=== PATIENT | female | born 1970 | race Caucasian/White ===

== ENCOUNTER → 2021-02-07 12:54 | Outpatient (CLI) | payer OTHER, SELFPAY ==
--- NOTE | 2021-02-07 14:23 | NEURO ---
NCS and/or EMG Patient Report Ordering Doctor: Keren Ramirez DATE OF SERVICE: 02/07/21 Indication: Intermittent bilateral hand numbness and tingling for many years in the first three digits of both hands (right greater than left). Evaluate for median neuropathy. Findings: Nerve conduction studies were performed in the right and left upper extremities. The right median motor study recording the abductor pollicis brevis showed a reduced amplitude, prolonged distal latency and slowed conduction velocity. The right ulnar motor study recording the abductor digiti minimi showed a normal amplitude, normal distal latency and normal conduction velocity. No conduction block or focal slowing was present across the elbow. The right median sensory response recording digit two showed a reduced amplitude, prolonged latency and markedly slowed conduction velocity. The right ulnar sensory response recording digit five showed a normal amplitude, latency and conduction velocity. The right radial sensory response recording over the extensor snuff box showed a normal amplitude, latency and conduction velocity. The left median motor study recording the abductor pollicis brevis showed a slightly reduced amplitude, borderline distal latency and borderline conduction velocity. The left ulnar motor study recording the abductor digiti minimi showed a normal amplitude, normal distal latency and normal conduction velocity. No conduction block or focal slowing was present across the elbow. The left median sensory response recording digit two showed a normal amplitude, prolonged latency and slowed conduction velocity. The left ulnar sensory response recording digit five showed a normal amplitude, latency and conduction velocity. The left radial sensory response recording over the extensor snuff box showed a normal amplitude, latency and conduction velocity. Right median-ulnar lumbrical / interosseous motor latencies showed a prolonged median latency compared to the ulnar. Left median-ulnar lumbrical / interosseous motor latencies showed a prolonged median latency compared to the ulnar. Needle EMG of the right upper extremity and cervical paraspinal muscles was performed. No denervation was seen in any muscle. Motor units in the abductor pollicis brevis were large amplitude and long duration with normal recruitment. All other motor unit morphology, activation and recruitment patterns were normal. Needle EMG of the left abductor pollicis brevis was performed. No denervation was seen. Motor unit morphology, activation and recruitment patterns were normal. Impression: This is an abnormal study. There is electrophysiologic evidence of median neuropathy across both wrists (moderate on the right, very mild on the left). These findings are compatible with the clinical diagnosis of carpal tunnel syndrome. In addition, there is no electrophysiologic evidence of a superimposed cervical radiculopathy in the right upper extremity. Ottoniel Richardson D.O. Multi Select Codes Neurology Neurology Interp Codes: 10611-51 Musc tst done w/nerv tst greene (interp) (59), 38847-03 Musc test done w/n test comp (interp) and 79412-06 Nrv cndj test 9-10 studies (interp)
== END ==
PROVIDERS: PCP Physician Assistant; Referring Provider Physician Assistant; Visit Provider Physician Assistant
DX: G56.03 Carpal tunnel syndrome, bilateral upper limbs (principal)
CPT/HCPCS: 95885; 95886; 95913

== ENCOUNTER 2025-04-07 08:40 | Day surgery (SDC) | payer OTHER, SELFPAY ==
[2025-04-07] VITALS (8 sets, daily range): BP systolic 75–112; BP diastolic 45–80; PULSE 67–74; RESP 14–16; TEMP 36.1–37.1; O2SAT 92–97; BMI 22.4
--- NOTE | 2025-04-07 08:54 | PCM.PRE.AN2 ---
ASA Classification* ASA Classification ASA Classification: 2 Assessment & Plan Anesthesia* Anesthesia Assessment Anesthesia Assessment: Discussed sedation and/or anesthesia options, risks, benefits, and alternatives with patient/parents/legal guardian/POA. Questions invited. The patient/parents/legal guardian/POA seems to understand and agrees to proceed with anesthesia plan. Reviewed the physical assessment, medical history, allergy history and patient home medications list prior to surgery/procedure/anesthetic and documented any changes. Performed airway and anesthesia risk assessments. Anesthesia Type Anesthesia Type: MAC Anesthesia Focused Assessment* Airway Assessment Mouth opens: >3 cm Mallampati Score: II Labs Anesthesia Preop lab: CBC WBC, (4.4-11.0) 7.3 K/mm3 05/28/13, 06:06 RBC, (4.2-5.4) 3.59 M/mm3 L 05/28/13, 06:06 Hgb, (12.0-15.0) 11.4 g/dl L 05/28/13, 06:06 Hct, (37-47) 34.4 % L 05/28/13, 06:06 Plt Count, (150-450) 197 K/mm3 05/28/13, 06:06 CHEMISTRY Potassium, (3.5-5.1) 3.9 mmol/L 05/21/13, 11:17 Sodium, (136-145) 139 mmol/L 05/21/13, 11:17 BUN, (7-18) 14 mg/dL 05/21/13, 11:17 Creatinine, (0.6-1.0) 0.7 mg/dL 05/21/13, 11:17 Glucose, (70-110) 77 mg/dL 05/21/13, 11:17 COAG Pre-Assessment Diagnosis/Proposed Procedure Planned Operative Procedure(s): EGD WITH DILATION Anesthesia History Anesthesia History - supervising bailiff: Anesthesia History - supervising bailiff Hx Hospitalization No 04/06/25 13:58 Any Problems With Anesthesia Yes: NAUSEA 04/06/25 13:58 Cholinesterase deficiency No 04/06/25 13:58 You/Your Family Experience No 04/06/25 13:58 fever (hyperthermia) with Relationship Recent Exposure to Contagious No 02/04/14 08:20 Disease Does patient have nerve No 04/06/25 13:58 stimulator Patient instructed to have device shut off --Does patient have Pacemaker or ICD? When Was Last Pacemaker Check QUESTION #4 FULL TEXT: You/Your Family Experience fever (hyperthermia) with Anesthesia Last Oral Intake Last Oral intake: Last Oral Intake NPO since Meds taken in AM with sips of water? Meds patient instructed to take am of surgery PONV PONV - supervising bailiff: PONV - supervising bailiff Female Yes 04/06/25 13:58 HX of Motion Sickness Yes 04/06/25 13:58 HX of N/V After Surgery Yes 04/06/25 13:58 Non-Smoker Yes 04/06/25 13:58 Duration of Surgery greater No 04/06/25 13:58 than 60 minutes Number of Risk Factors 4 04/06/25 13:58 PONV Score Severe Risk 04/06/25 13:58 Height & Weight Height & Weight: Anesthesia: Height & Weight Height 5 ft 6 in 04/02/25 12:53 Respiratory Assessment Respiratory Assessment - supervising bailiff: Respiratory Tract Infection Hx - supervising bailiff Hx Respiratory Tract Infection No 04/06/25 13:58 STOP Sleep Apnea STOP Sleep Apnea - supervising bailiff: STOP Sleep Apnea - supervising bailiff Hx Hypertension Yes: CONTROLLED WITH MED 04/06/25 13:58 Hx Sleep Apnea No 04/06/25 13:58 CPAP No 05/27/13 12:13 BIPAP No 05/27/13 09:12 Do you snore loudly (louder Yes 04/06/25 13:58 than talking or can be heard Do you often feel tired/ No 04/06/25 13:58 fatigued/ sleepy during daytime? Has anyone observed you stop No 04/06/25 13:58 breathing during sleep? STOP Results Positive 04/06/25 13:58 QUESTION #5 FULL TEXT : Do you snore loudly (louder than talking or can be heard through closed doors)? 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 Specify any problems Hx of Preganancy in last 3 No 04/06/25 13:58 Months Nurse Filling Out Transfusion DSCHRIBER 04/06/25 13:58 & Questions: Date: 04/06/25 04/06/25 13:58 Time: 14:00 04/06/25 13:58 Patient unable to answer at this time (ie. confused, unrespo /Reproduction History /Reproductive History - supervising bailiff: /Reproductive Hx- supervising bailiff Hx Now No 04/06/25 13:58 Gestational Age (in weeks): EDC: Hx Hx Para Hx Section SAB No 04/06/25 13:58 Does the father of the baby or his family experience fever w Father of the baby Malignant Hypertension history comment Active Medications Active Medications: Current Medications Generic Name Dose Route Start Last Admin Trade Name Freq PRN Reason Stop Dose Admin Lactated Ringer's 1,000 mls @ 15 mls/hr 04/07/25 08:45 IV .Q48H CORIE PFSH Medical History Wears glasses Post-menopausal Depression Anxiety Alcohol use Arthritis High cholesterol Back pain Acquired scoliosis Pain Migraine headache Hypoglycemia Syncope History of ulceration Former smoker History of stress test Cardiology follow-up encounter Hypertension Dysphagia Home Medications ?Medication ?Instructions ?Recorded ?Last Taken ?Type Hydrocortisone 2.5%/lidocaine 5% #30 ea 02/02/25 Unknown Rx suppository (cmpd) (hydrocortisone 2.5%/lidocaine 5% suppository (compound)) atorvastatin 40 mg tablet 40 mg PO QDAY 02/02/25 Unknown History carvedilol 6.25 mg tablet 6.25 mg PO BID 02/02/25 Unknown History losartan 50 mg tablet 100 mg PO QDAY 02/02/25 Unknown History sertraline 100 mg tablet 100 mg PO QDAY 02/02/25 Unknown History trazodone 100 mg tablet 100 mg PO QHS 02/02/25 Unknown History pantoprazole 20 mg tablet,delayed 20 mg PO DAILY 04/02/25 Unknown History release Allergy/AdvReac Type Severity Reaction Status Date / Time No Known Allergies Allergy Verified 04/06/25 13:57 Surgical History Hx of colonoscopy Hx of toe surgery History of carpal tunnel surgery H/O tubal ligation H/O: hysterectomy Social History Smoking Status: Former smoker alcohol intake: never substance use type: does not use Review of Systems (Anesthesia) ROS Narrative System reviewed and no additional complaints, except as documented.
[2025-04-07] MEDS: Lactated Ringers 1,000 ML 15 ML IV (09:00)
--- NOTE | 2025-04-07 09:32 | HP.PCM_ITS ---
History and Physical Date of Admission: 04/07/25 Intake Vital Signs 02/02/2514:12 04/02/2512:53 Height 5 ft 6 in 5 ft 6 in Weight: 141 lb 8 oz 146 lb BMI 22.8 23.6 BP 128/88 H 125/85 H Blood Pressure Location Rt brachial Rt brachial Position Sitting Sitting Respiration 17 18 Pulse 72 65 Pulse Source Monitor Monitor Temp 97.2 F L 97.2 F L Temp Source Temporal Temporal Pulse Oximetry (%) 99 99 Oxygen Delivery Method room air room air Intake Visit Reasons: Dysphagia Chief Complaint: dysphagia Is patient in pain?: No Allergies No Known Allergies Allergy (Verified 04/02/25 12:53) Medications ?Medication ?Instructions ?Recorded ?Confirmed ?Type Hydrocortisone 2.5%/lidocaine 5% #30 ea 02/02/25 02/02/25 Rx suppository (cmpd) (hydrocortisone 2.5%/lidocaine 5% suppository (compound)) atorvastatin 40 mg tablet 40 mg PO QDAY 02/02/25 02/02/25 History carvedilol 6.25 mg tablet 6.25 mg PO BID 02/02/25 02/02/25 History losartan 50 mg tablet 100 mg PO QDAY 02/02/25 02/02/25 History ondansetron HCl 4 mg tablet 4 mg PO Q8 02/02/25 02/02/25 History sertraline 100 mg tablet 100 mg PO QDAY 02/02/25 02/02/25 History trazodone 100 mg tablet 100 mg PO QHS 02/02/25 02/02/25 History pantoprazole 20 mg tablet,delayed 20 mg PO DAILY 04/02/25 04/02/25 History release [facility] Medical History (Updated 04/02/25 @ 12:53 by Awa Begum LPN) Dysphagia Skin tag of perianal region Hemorrhoids Surgical History History of carpal tunnel surgery H/O tubal ligation H/O: hysterectomy Social History Smoking Status: Never smoker alcohol intake: never substance use type: does not use HPI HPI HPI: Patient is a 54-year-old female here with dysphagia. She reports that she is having difficulty swallowing especially meat. She said that she got chicken stuck last week and it was not able to go down and she had to throw it up. She does not have reflux at baseline but has had episodes in the past. She has never had an EGD. ROS General General: No weight change, appetite, fatigue, colon cancer, breast cancer or weakness HEENT HEENT: Yes difficulty swallowing; No eye injury, eye surgery, swollen glands or hoarseness Endo Endocrine: No thyroid disease, diabetes mellitus, thyroid cancer, Hair loss, heat intolerance or cold intolerance Skin Skin: No rash or changing moles Musc Musculoskeletal: Yes back problems and arthritis; No rheumatoid arthritis, gout or joint pain Cardio Cardiovascular: Yes high blood pressure; No murmur, pacemaker, heart disease, atrial fibrillation, heart attack, heart stent, palpitations, shortness of breath with exertion or chest pain Psych Psychiatric: Yes depression and anxiety; No hearing voices Resp Respiratory: No shortness of breath, No sleep apnea, No cough, No COPD, No asthma, No emphysema and No wheezing Gastro Gastrointestinal: No abdominal pain, No nausea or vomiting, No diarrhea, Yes constipation, No blood in stool, No acid reflux, Yes hemorrhoids, No ulcers, No gallbladder problem and No black,tarry stools Armando Hematologic: No blood thinners, No blood disorders, No bleeding, No anemia and No blood clots Neuro Neurologic: Yes numbness, Yes tingling and No weakness Exam Const General: cooperative Orientation: alert and oriented x3 HENMT Head: normal to inspection Neck Neck: normal visual inspection and full ROM Chest Chest palpation & inspection: normal inspection of the chest Resp Effort & Inspection: normal respiratory effort Auscultation: clear to auscultation bilaterally Cardio Rate: regular rate Rhythm: regular rhythm GI Inspection: non-distended Palpation: soft and nontender Skin General: no rashes or lesions noted Neuro General: patient alert and patient oriented x3 Extrem General: full ROM Psych Appearance: grossly normal Mental Status: mental status grossly normal Assessment and Plan Assessment and Plan (1) Dysphagia: Qualifiers: Dysphagia type: esophageal phase Qualified Code(s): R13.19 - Other dysphagia Plan: Patient has dysphagia and feels food sticking in her chest. I would like to perform an EGD with possible dilation. I explained endoscopy in detail to the patient. I explained the risks including but not limited to stroke or heart attack with anesthesia, perforation of the GI tract, bleeding, infection. I explained that any of these could necessitate further emergency surgery. The patient understands and all questions were answered sufficiently. The patient wishes to proceed with procedure. I discussed the increased risk of perforation and bleeding with dilation and she understands. Andrew Garcia MD Pager: [facility] [address] [place] [address], [address] [place] [address] Office: I have examined the patient and the H&P has been reviewed. There are no clinical changes since date of exam.
--- NOTE | 2025-04-07 09:45 | EGD_PTH ---
PATIENT: DMITRIY KNAPP LOC: EN U#:[id number] AGE/SX: 54/F ROOM: RE04/07/[address]: Dr. Andrew Garcia MD : 1970 BED: DIS: 04/07/2025 SPEC #: [id number] RECD: 04/07/25 10:26 STATUS: YUDY LASHELL #: [id number] BREE: 04/07/25 09:[address]: Andrew Garcia DEPT: SURGICAL PATHOLOGY RECD BY: Nicolás Hayes ENTERED: 04/07/25 11:18 SP TYPE: EGD BIOPSY OTHR DR: JOSÉ ANTONIO Olivares Tissues: A - Gastric mucous membrane B - Esophagus, NOS Procedures: Immunohistochemical Stains Surgery Specimen Level IV HEADER OPERATION: EGD with biopsies PRE-OP DIAGNOSIS: Dysphagia TISSUE SUBMITTED: A- Antrum biopsy, B- GE junction biopsy MICROSCOPIC DIAGNOSIS A. Stomach, antrum, biopsy: * Antral mucosa with mild chronic inflammation * No morphologic evidence of Helicobacter pylori organisms is identified on H&E or immunostained sections B. Esophagus, GEjunction, biopsy: * Cardiac type mucosa with mild chronic inflammation, negative for goblet cell metaplasia * Squamous epithelium is not identified MICROSCOPIC DESCRIPTION Slides are reviewed. All matched controls reacted appropriately. These tests were developed and their performance characteristics determined by [facility]. They may not have been cleared or approved by the U.[place]. Food and Drug Administration. The FDA has determined that such clearance or approval is not necessary. The above immunohistochemical markers are viewed by the Pathologist. GROSS DESCRIPTION A. Received in fixative is one container labeled with the patient's name and designated Antrum biopsy. The specimen consists of two irregular fragments of rangle tissue that measure 0.2 and 0.3 cm. The specimen is totally submitted in one cassette. B. Received in fixative is one container labeled with the patient's name and designated GE junction biopsy. The specimen consists of one irregular fragment of rangel tissue that measures 0.4 cm. The specimen is totally submitted in one cassette. [place] 04/07/2025 CPT:24568x9,43094
--- NOTE | 2025-04-07 09:56 | OP.PROVAT_ITS ---
04/07/2025 Keren Ramirez Re : Upper GI endoscopy procedure for Mayra Johnson Ramirez This procedure was performed on Monday, April 07, 2025. My impressions and recommendations are as follows: Impressions : - [place]-colored mucosa suspicious for short-segment Oreilly's esophagus. Biopsied. - Gastritis with hemorrhage. Biopsied. - Normal examined duodenum. Recommendations : - Discharge patient to home. - Resume previous diet. - Continue present medications. - Await pathology results. - Return to my office in 1 week. My findings are described in the full procedure note, which is enclosed. If I can be of further assistance, please feel free to contact me at Doctor phone number(s): , Work: . Sincerely, Andrew Garcia MD 04/07/2025 9:55:28 AM This report has been signed electronically.
--- NOTE | 2025-04-07 09:56 | OP.EGD_ITS ---
Patient Name: Mayra Ojeda Procedure Date: 04/07/2025 9:36 AM Date of : 1970 Age: 54 Procedure: Upper GI endoscopy Indications: Dysphagia Providers: Andrew Garcia MD Referring MD: Keren Ramirez Medicines: Propofol per Anesthesia Patient Profile: This is a 54 year old female. Refer to note in patient chart for documentation of history and physical. Complications: No immediate complications. Estimated blood loss: Minimal. Procedure: Pre-Anesthesia Assessment: - Prior to the procedure, a History and Physical was performed, and patient medications and allergies were reviewed. The patient's tolerance of previous anesthesia was also reviewed. The risks and benefits of the procedure and the sedation options and risks were discussed with the patient. All questions were answered, and informed consent was obtained. Prior Anticoagulants: The patient has taken no anticoagulant or antiplatelet agents. After reviewing the risks and benefits, the patient was deemed in satisfactory condition to undergo the procedure. After obtaining informed consent, the endoscope was passed under direct vision. Throughout the procedure, the patient's blood pressure, pulse, and oxygen saturations were monitored continuously. The gastroscope was introduced through the mouth, and advanced to the third part of duodenum. The upper GI endoscopy was accomplished without difficulty. The patient tolerated the procedure well. Scope In: 9:47:13 AM Scope Out: 9:52:27 AM Total Procedure Duration Time 0 hours 5 minutes 14 seconds Findings: [place]-colored mucosa was present. Biopsies were taken with a cold forceps for histology. Scattered moderate inflammation with hemorrhage characterized by adherent blood was found in the prepyloric region of the stomach. Biopsies were taken with a cold forceps for Helicobacter pylori testing. The examined duodenum was normal. Impression: - [place]-colored mucosa suspicious for short-segment Oreilly's esophagus. Biopsied. - Gastritis with hemorrhage. Biopsied. - Normal examined duodenum. Recommendation: - Discharge patient to home. - Resume previous diet. - Continue present medications. - Await pathology results. - Return to my office in 1 week. Procedure Code(s): --- Professional --- 25218, Esophagogastroduodenoscopy, flexible, transoral; with biopsy, single or multiple Diagnosis Code(s): --- Professional --- K22.89, Other specified disease of esophagus K29.71, Gastritis, unspecified, with bleeding R13.10, Dysphagia, unspecified CPT copyright 2021 [employer]. All rights reserved. The codes documented in this report are preliminary and upon medical biller/coder review may be revised to meet current compliance requirements. Andrew Garcia MD 04/07/2025 9:55:28 AM This report has been signed electronically. Number of Addenda: 0 Note Initiated On: 04/07/2025 9:36 AM
--- NOTE | 2025-04-07 10:03 | PCM.POST.ANE ---
Anesthesia: Postop Eval I Current Vital Signs Temperature: 97 F Pulse Rate: 72 Blood Pressure: 85/64 Respiratory Rate: 16 Pulse Ox: 95 Oxygen Delivery Method: Room Air Assessment Airway patent: Yes Spontaneous unlabored respirations: Yes Mental status: Asleep nausea: No Vomiting: No Anesthesia Complication: No Fluid Hydration Crystalloid volume administer (ml): 400 Total IV fluid infused: 400 Progress Note Anesthesia document: Postop Eval 1 completed: Yes
--- NOTE | 2025-04-08 22:35 | PCM.POSTANE2 ---
Anesthesia Postop Eval I Sum Postop Eval Completion status Anesthesia document: Postop Eval 1 completed: Yes Anesthesia Postop Eval I Summary Anesthesia Postop Eval I Summary: Anesthesia Postop Eval I: Assessment Summary Airway patent Yes 04/07/25 10:03 [email or web address] Spontaneous unlabored Yes 04/07/25 10:03 [email or web address] respirations Mental status Asleep 04/07/25 10:03 [email or web address] nausea No 04/07/25 10:03 [email or web address] Vomiting No 04/07/25 10:03 [email or web address] Anesthesia Postop Eval I: Fluid Summary Crystalloid volume administer 400 04/07/25 10:03 [email or web address] (ml) Colloids volume administered ( ml) Blood Product volume administered (ml) Total IV fluid infused 400 04/07/25 10:03 [email or web address] Anesthesia Postop Eval I: Summary Notes Anesthesia Complication No 04/07/25 10:03 [email or web address] Anesthesia Complication Comment: Post-operative progress note Anesthesia: Postop Eval II Evaluation Mental status: Awake and Calm Pain Level: 0 nausea: No Vomiting: No Complications Anesthesia Complication: No
== END 2025-04-07 10:47 | disposition home or self-care (01) ==
LOC: EN 08:59 → AC 09:00
PROVIDERS: PCP Physician Assistant; Referring Provider Physician Assistant; Visit Provider Surgery
PROC: 0DJ08ZZ Inspection of Upper Intestinal Tract, Via Natural or Artificial Opening Endoscopic (ICD-10-PCS; CPT 43235; principal; 2025-04-07 09:40)
DX: R13.10 Dysphagia, unspecified (principal); K22.89 Other specified disease of esophagus; Z90.710 Acquired absence of both cervix and uterus; K29.71 Gastritis, unspecified, with bleeding
CPT/HCPCS: 44361; 88305; 88342; J2405